=== PATIENT | female | born 1960 | race American Indian/Alaskan Native ===

== ENCOUNTER 2022-01-23 08:25 | Day surgery (SDC) | payer BC, OTHER ==
[~2022-01-23] VITALS: Ht 165.1 cm; Wt 65.8 kg
[~2022-01-23 08:25] MED LIST: FLUTICASONE PRO16 GM NS; LORATADINE10 MG PO; ONCE DAILY1 EACH PO; PSEUDOEPHEDRINE60 MG PO
[2022-01-23] MEDS ORDERED: ZYRTEC10 MG PO (08:53)
--- NOTE | 2022-01-23 11:18 | NUR ---
01/23/22 1118 Mahi Bhatti 1057 REPORT RECIEVED FROM OR NURSE. PATIENT IS DROWSY. AWAKENS FOR VERBAL STIMULI. BREATHING EQUAL AND UNLABORED. OXYGEN AT 3 LITERS VIA NASAL CANNULA. PATIENT EDUCATED ON PASSING GAS. DENIES ANY NAUSEA OR PAIN. 1105 PATIENT AWAKE. OXYGEN TITRATED TO ROOM AIR. OXYGEN SATURATIONS ARE MAINTAING ABOVE 95%. BREATHING EQUAL AND UNLABORED. PATIENT REQUESTING WATER AND HOB ELEVATED. IVF STILL INFUSING. 1108 DR. TOLEDO TALKING TO PATIENT. 1115 PATIENT AWAKE AND ORIENTED. DENIES PAIN OR NAUSEA. NEW BAG OF LR INFUSING. BREATHING EQUAL AND UNLABORED. OXYGEN SATURATIONS ARE ABOVE 95%.
--- NOTE | 2022-01-23 17:32 | OR ---
[facility] [address], [place] [address] Signed DATE OF OPERATION: 01/23/2022 SURGEON: David Toledo MD PREOPERATIVE DIAGNOSES: 1. Screening. 2. Unremarkable colonoscopy in 2011. POSTOPERATIVE DIAGNOSES: 1. A 4 mm polyp, proximal right colon. 2. A 4 polyp at 15 cm (distal sigmoid colon). PROCEDURE: Colonoscopy with hot biopsy. ESTIMATED BLOOD LOSS: None. INDICATIONS: Dory is a 62-year-old female asked to see me for a followup screening colonoscopy. She underwent an unremarkable colonoscopy for screening purposes in [address] Gibson. She had done well with Versed and fentanyl. There is no family history of colon cancer or polyps. In the office, I gave her a pamphlet on colonoscopy. She understands the nature of the test. There is risk including, but not limited to gas bloating, crampy abdominal pain, bleeding, perforation requiring surgery, and missed diagnosis. We also discussed the need for IV conscious sedation. She had expressed understanding wished to proceed. DESCRIPTION OF PROCEDURE: Dory was taken into our endoscopy suite and placed in the left lateral decubitus position. She was given IV sedation with 7 mg of Versed and 100 mcg of fentanyl to cover the case. A digital rectal exam was performed and this was unremarkable. The adult colonoscope was introduced and advanced under direct visualization of camera without difficulty up into the cecum itself. Her prep was quite excellent. We could easily see the appendiceal orifice and ileocecal valve. The two small polyps mentioned above were easily removed with the help of hot biopsy forceps. There was no diverticulosis. Once in the rectum, the scope had been retroflexed and really no significant issues noted other than some very minimal hemorrhoid tissue. After this, the gas was suctioned out. The colonoscope removed. Dory tolerated the procedure quite well. Electronically Signed By: DAVID TOLEDO MD 01/23/221731 PATIENT NAME: DORY BERRY OPERATIVE REPORT DATE OF : 62 REPORT #: [id number] PHYSICIAN: DAVID TOLEDO MD PCP: LOUISA IRVIN REPORT IS CONFIDENTIAL AND NOT TO BE RELEASED WITHOUT AUTHORIZATION [address] [address] Signed RECOMMENDATIONS: I will see Dory back in my office in 7 to 14 days to review her results. David Toledo MD ALB/MODL /[id number] cc: [facility] Patient Chart David Toledo MD Copies: [facility] DAVID TOLEDO MD ~ Electronically Signed By: DAVID TOLEDO MD 01/23/221731 PATIENT NAME: DORY BERRY OPERATIVE REPORT DATE OF : 62 REPORT #: [id number] PHYSICIAN: DAVID TOLEDO MD PCP: LOUISA IRVIN REPORT IS CONFIDENTIAL AND NOT TO BE RELEASED WITHOUT AUTHORIZATION
--- NOTE | 2022-01-24 15:09 | PATH ---
[facility] [address] [place] [address] Signed SPECIMEN(S): A ASCENDING/RIGHT COLON POLYP SPECIMEN(S): B SIGMOID POLYP AT 15 CM SPECIMEN SOURCE: A. ASCENDING/RIGHT COLON POLYP B. SIGMOID POLYP AT 15 CM CLINICAL HISTORY: Follow-up colonoscopy. Post: Colon polyps x 2. FINAL PATHOLOGIC DIAGNOSIS: A. Colon, proximal right, polyp, polypectomy: - Tubular adenoma. - Negative for high grade dysplasia or malignancy. B. Colon, sigmoid, polyp at 15 cm, polypectomy: - Cauterized tubular adenoma. - Negative for high grade dysplasia or malignancy. RONNIE:[facility]:C2NR MICROSCOPIC EXAMINATION: Histologic sections of all submitted blocks are examined by light microscopy. These findings, together with the gross examination, support the pathologic diagnosis. GROSS DESCRIPTION: Two specimens are received in two containers, labeled "MS." A. The specimen, labeled "MS, proximal right colon polyp," is received in formalin and consists of one nolan soft tissue fragment that measures 0.2 cm in greatest dimension. The specimen is entirely submitted in cassette (A1). B. The specimen, labeled "MS, sigmoid colon polyp at 15 cm," is received in formalin and consists of one nolan soft tissue fragment that measures 0.2 cm in greatest dimension. The specimen is entirely submitted in cassette (B1). JS (under the direct supervision of a pathologist) The Gross Description was prepared using a voice recognition system. The report was reviewed for accuracy; however, sound-alike word errors, addition and/or deletions may occur. If there is any question about this report, please contact Client Services. PERFORMING LABORATORY: PATIENT NAME: KATHLEEN BERRY PATHOLOGY DATE OF : 62 REPORT #: [id number] PHYSICIAN: PURNIMA ALVAREZ PCP: LOUISA IRVIN REPORT IS CONFIDENTIAL AND NOT TO BE RELEASED WITHOUT AUTHORIZATION [facility] [address] [address] Signed The technical component [place] [address] (CLIA# [id number]). Professional interpretation was performed by [employer] [facility], [address] [address] (CLIA# [id number]). Diagnostician: Samanta Jeffery MD Pathologist Electronically Signed 01/24/2022 Copies: ~ PATIENT NAME: KATHLEEN BERRY PATHOLOGY DATE OF : 62 REPORT #: [id number] PHYSICIAN: PURNIMA ALVAREZ PCP: LOUISA IRVIN REPORT IS CONFIDENTIAL AND NOT TO BE RELEASED WITHOUT AUTHORIZATION
== END 2022-01-23 11:50 | disposition home or self-care (01) ==
LOC: DS 08:25 → OPS 08:25 → DS 10:00 → OPS 10:00
PROVIDERS: ATTEND Colon & Rectal Surgery
PROC: 0DBN8ZX Excision of Sigmoid Colon, Via Natural or Artificial Opening Endoscopic, Diagnostic (ICD-10-PCS; 2022-01-23)
PROC: 0DBF8ZX Excision of Right Large Intestine, Via Natural or Artificial Opening Endoscopic, Diagnostic (ICD-10-PCS; principal; 2022-01-23 10:00)
DX: Z12.11 Encounter for screening for malignant neoplasm of colon (principal); D12.2 Benign neoplasm of ascending colon; D12.5 Benign neoplasm of sigmoid colon; E16.2 Hypoglycemia, unspecified; Z88.1 Allergy status to other antibiotic agents; Z88.0 Allergy status to penicillin
CPT/HCPCS: 99153; G0500; J2250; J3010; J7121

== ENCOUNTER 2022-11-18 14:36 | Emergency (ER) | payer OTHER, BC ==
[~2022-11-18] VITALS: Ht 165.1 cm; Wt 65.8 kg
[~2022-11-18 14:36] MED LIST changes: +ZYRTEC10 MG PO
== END 2022-11-18 18:19 | disposition home or self-care (01) ==
LOC: ED 14:36
DX: S70.02XA Contusion of left hip, initial encounter (principal); S50.12XA Contusion of left forearm, initial encounter; S90.02XA Contusion of left ankle, initial encounter; W01.0XXA Fall on same level from slipping, tripping and stumbling without subsequent striking against object, initial encounter; Z87.891 Personal history of nicotine dependence; Z88.0 Allergy status to penicillin; Z88.1 Allergy status to other antibiotic agents; Z79.899 Other long term (current) drug therapy
CPT/HCPCS: 99283